=== PATIENT | female | born 1940 | race African-American/Black ===

== ENCOUNTER 2017-03-12 18:09 | Emergency (ER) | payer MEDICARE ==
[2017-03-12] MEDS ORDERED: HYDROcodone/Acetaminophen 10/325 mg Tablet ONE (19:31)
[2017-03-12] MEDS ORDERED: Lidocaine 1% (PF) 30 ML VIAL ONE (19:31)
[2017-03-12 20:05] LABS: #Basophils 0.1 thou/uL (0.0-0.2); #Eosinphils 0.2 thou/uL (0.0-0.7); #Monocytes 0.4 thou/uL (0.11-0.59); #Neutrophils 2.9 thou/uL (1.40-6.50); %Basophils 0.9 % (0.0-1.0); %Lymphocytes 45.7 % (21.0-51.0); %Monocytes 5.9 % (0.0-10.0); Hematocrit 39.9 % (36.0-47.0); Mean Platelet Volume 8.1 fL (7.4-10.4); Red Blood Cell (RBC) Count 3.97 mill/uL (4.20-5.40); White Blood Cell (WBC) Count 6.6 thou/uL (4.8-10.8)
[2017-03-12 20:12] LABS: Prothrombin Time 20.4 SEC (12.0-14.7)
[2017-03-12] MEDS ORDERED: Clindamycin/D5W 600 mg/50 ml Premix Bag ONE (20:12)
[2017-03-12] MEDS ORDERED: Adacel (T-DAP) 0.5 ML VIAL ONE (20:12)
[2017-03-12 20:24] LABS: Anion Gap 10 mmol/L (10-20); BUN (Urea Nitrogen) 19 mg/dL (9.8-20.1); Calc. Creatinine Clearance 0 mL/min (70-130); Calcium 9.7 mg/dL (7.8-10.44); Carbon Dioxide 27 mmol/L (23-31); Chloride 109 mmol/L (98-107); Estimated GFR-MDRD 49
[2017-03-12] MEDS ORDERED: Piperacillin/Tazobactam 3.375 GM in Sodium Chloride 0.9% 100 ML IVPB SCH (20:45)
--- NOTE | 2017-03-12 21:11 | RAD ---
LEFT HAND THREE VIEWS 03/12/17 HISTORY: [place] injury. FINDINGS: Metallic fishhook is embedded at the lateral aspect of the thumb at the level of the mid shaft proxim al phalanx. 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 IMPRESSION: Embedded metallic fishhook left thumb. POS: [facility]
== END 2017-03-12 22:21 | disposition home or self-care (01) ==
LOC: ERS 18:09
DX: S61.022A Laceration with foreign body of left thumb without damage to nail, initial encounter (principal); I48.91 Unspecified atrial fibrillation; E03.9 Hypothyroidism, unspecified; I10 Essential (primary) hypertension; W45.8XXA Other foreign body or object entering through skin, initial encounter
CPT/HCPCS: 10120; 36415; 80048; 85025; 85610; 90471; 90715; 96365; 96367; J2001; J2543; J3490; J7050

== ENCOUNTER 2017-03-25 08:42 | Outpatient (CLI) | payer MEDICARE | END 2017-03-25 08:43 | disposition home or self-care (01) | LOC: BICULT 08:42 | PROVIDERS: ATTEND Internal Medicine Nephrology | DX: I12.9 Hypertensive chronic kidney disease with stage 1 through stage 4 chronic kidney disease, or unspecified chronic kidney disease (principal); N18.3 Chronic kidney disease, stage 3 (moderate) | CPT/HCPCS: 76770 ==

== ENCOUNTER 2017-10-27 14:11 | Outpatient (CLI) | payer MEDICARE ==
--- NOTE | 2017-10-27 15:54 | ULT ---
VENOUS DOPPLER ULTRASOUND OF THE LEFT LOWER EXTREMITY: History Left lower extremity edema. TECHNIQUE: Robertson scale ultrasound with color flow and spectral Doppler imaging of the deep venous system of the l eft lower extremity is performed. FINDINGS: There is slightly sluggish flow with normal compression and augmentation noted in the right common fe moral, femoral, deep femoral, popliteal, posterior tibial, and greater saphenous veins in the left lo wer extremity. IMPRESSION: No evidence of deep vein thrombosis in the left lower extremity. POS: [facility]
== END 2017-10-27 14:12 | disposition home or self-care (01) ==
LOC: ULT 14:11
PROVIDERS: ATTEND Student in an Organized Health Care Education/Training Program
DX: R60.0 Localized edema (principal)

== ENCOUNTER 2018-03-07 16:35 | Emergency (ER) | payer MEDICARE ==
[2018-03-07 17:13] LABS: #Eosinphils 0.1 thou/uL (0.0-0.7); #Lymphocytes 2.7 thou/uL (1.20-3.40); #Monocytes 0.5 thou/uL (0.11-0.59); #Neutrophils 3.1 thou/uL (1.40-6.50); %Basophils 0.7 % (0.0-1.0); %Eosinophils 2.1 % (0.0-10.0); %Monocytes 8.1 % (0.0-10.0); %Neutrophils 48.1 % (42.0-75.0); Hemoglobin 12.1 g/dL (12.0-16.0); Mean Corpuscular HGB CONC 31.5 g/dL (32.0-36.0); Mean Corpuscular Hemoglobin 31.5 pg (27.0-31.0); Mean Platelet Volume 8.6 fL (7.4-10.4); Platelet Count 144 thou/uL (130-400); RBC Distribution Width 13.4 % (11.5-14.5); Red Blood Cell (RBC) Count 3.84 mill/uL (4.20-5.40); White Blood Cell (WBC) Count 6.5 thou/uL (4.8-10.8)
[2018-03-07 17:34] LABS: ALT (SGPT) 11 U/L (8-55); AST (SGOT) 14 U/L (5-34); Albumin 4.1 g/dL (3.4-4.8); Alkaline Phosphatase 53 U/L (40-150); Anion Gap 13 mmol/L (10-20); BUN (Urea Nitrogen) 17 mg/dL (9.8-20.1); Bilirubin, Total 0.4 mg/dL (0.2-1.2); Calc. Creatinine Clearance 0 mL/min (70-130); Calcium 9.6 mg/dL (7.8-10.44); Carbon Dioxide 23 mmol/L (23-31); Chloride 105 mmol/L (98-107); Estimated GFR-MDRD 51; Globulin 3.2 g/dL (2.4-3.5); Glucose 90 mg/dL (83-110); Potassium 4.5 mmol/L (3.5-5.1); Protein, Total 7.3 g/dL (6.0-8.3); Sodium 136 mmol/L (136-145)
[2018-03-07 17:39] LABS: CKMB 0.8 ng/mL (0-6.6); Troponin I Less than 0.010 ng/mL (< 0.028)
[2018-03-07 17:52] LABS: Bilirubin Negative (Negative); Blood, Urine Negative (Negative); Clarity CLEAR (Clear); Glucose, Urine (Dipstick) Negative (Negative); Leukocyte Trace (Negative); Nitrite Negative (Negative); Protein, Urine (Dipstick) Negative (Neg-Trace); Specific Gravity, Urine 1.011 (1.002-1.036); Urobilinogen 0.2 mg/dL (0.2-1.0)
[2018-03-07 17:55] LABS: Bacteria/HPF None Seen HPF (None Seen); Hyaline Casts/LPF 0-3 HYALINE CAST LPF (0-3 Hyaline); RBC/HPF 0-3 HPF (0-3); Squamous Epithelial 0-3 HPF (0-3); WBC/HPF 0-3 HPF (0-3)
--- NOTE | 2018-03-07 18:24 | CT ---
CT HEAD WITHOUT CONTRAST: Technique: Multiple contiguous axial images were obtained through the head without IV enhancement. Indications: Dizziness. Headache. Comparison: 04-12-17 FINDINGS: Cortical volume loss again noted. Caval septum pellucidum again noted. Ventricular size is normal. No evidence of intracranial mass, hemorrhage, or acute infarct. No interval change. IMPRESSION: No acute finding. POS: [facility]
[2018-03-07] MEDS ORDERED: Meclizine HCl 25 MG TAB ONE (18:25)
== END 2018-03-07 19:00 | disposition home or self-care (01) ==
LOC: ERS 16:35
DX: R42 Dizziness and giddiness (principal); E03.9 Hypothyroidism, unspecified; I10 Essential (primary) hypertension; I48.91 Unspecified atrial fibrillation
CPT/HCPCS: 70450; 80053; 81003; 81015; 82553; 84484; 85025; 93005; 96360

== ENCOUNTER 2018-06-06 10:01 | Outpatient (CLI) | payer MEDICARE ==
--- NOTE | 2018-06-06 12:05 | ULT ---
RIGHT LEG SOFT TISSUE ULTRASOUND: HISTORY: Palpable mass at the anterior aspect of the mid right tibia/fibula. TECHNIQUE: Multiplanar casas-scale and color Doppler images were obtained in a targeted ultrasound at the area of palpable abnormality. FINDINGS: No fluid collection or mass is seen at the area of palpable abnormality. Normal underlying subcutane ous fat and muscle are seen. IMPRESSION: No significant abnormality at the area of palpable concern. POS: [facility]
== END 2018-06-06 10:02 | disposition home or self-care (01) ==
LOC: BICULT 10:01
PROVIDERS: ATTEND Internal Medicine
DX: L98.9 Disorder of the skin and subcutaneous tissue, unspecified (principal)
CPT/HCPCS: 76999

== ENCOUNTER 2018-06-16 14:10 | Emergency (ER) | payer MEDICARE ==
[2018-06-16 15:34] LABS: #Basophils 0.1 thou/uL (0.0-0.2); #Eosinphils 0.2 thou/uL (0.0-0.7); #Lymphocytes 3.3 thou/uL (1.20-3.40); #Monocytes 0.5 thou/uL (0.11-0.59); #Neutrophils 2.7 thou/uL (1.40-6.50); %Basophils 1.6 % (0.0-1.0); %Eosinophils 3.5 % (0.0-10.0); %Lymphocytes 48.9 % (21.0-51.0); %Monocytes 6.7 % (0.0-10.0); %Neutrophils 39.2 % (42.0-75.0); Hemoglobin 13.3 g/dL (12.0-16.0); Mean Corpuscular HGB CONC 31.9 g/dL (32.0-36.0); Mean Corpuscular Hemoglobin 32.4 pg (27.0-31.0); Mean Platelet Volume 8.2 fL (7.4-10.4); Platelet Count 192 thou/uL (130-400); White Blood Cell (WBC) Count 6.8 thou/uL (4.8-10.8)
[2018-06-16 15:56] LABS: ALT (SGPT) 7 U/L (8-55); AST (SGOT) 16 U/L (5-34); Albumin 4.3 g/dL (3.4-4.8); Alkaline Phosphatase 61 U/L (40-150); Anion Gap 13 mmol/L (10-20); BUN (Urea Nitrogen) 16 mg/dL (9.8-20.1); Bilirubin, Total 0.3 mg/dL (0.2-1.2); Calc. Creatinine Clearance 0 mL/min (70-130); Calcium 10.3 mg/dL (7.8-10.44); Carbon Dioxide 27 mmol/L (23-31); Chloride 108 mmol/L (98-107); Estimated GFR-MDRD 34; Globulin 3.6 g/dL (2.4-3.5); Glucose 92 mg/dL (83-110); Potassium 3.9 mmol/L (3.5-5.1); Protein, Total 7.9 g/dL (6.0-8.3); Sodium 144 mmol/L (136-145)
--- NOTE | 2018-06-16 16:53 | CT ---
CT HEAD NONCONTRAST DATE: 06/16/18 HISTORY: Altered mental status. COMPARISON: 03/07/18. FINDINGS: There is no evidence of acute intracranial hemorrhage or infarct. Mild diffuse cortical atrophy. No m ass effect or shift of midline structures. Enlargement of the supraclinoid portion of the left merchandising intern al carotid artery is apparent. Postoperative changes of each side of the calvarium are apparent. Larg e cavum septum pellucidum and cavum vergae. There is calcification along the anterior falx. IMPRESSION: Chronic-type findings are stable. No acute intracranial abnormalities are demonstrated. POS: [facility]
[2018-06-16 19:53] LABS: Bilirubin Moderate (Negative); Blood, Urine Negative (Negative); Clarity CLEAR (Clear); Glucose, Urine (Dipstick) Negative (Negative); Leukocyte Small (Negative); Nitrite Negative (Negative); Protein, Urine (Dipstick) Trace mg/dL (Neg-Trace); Specific Gravity, Urine 1.024 (1.002-1.036); Urobilinogen 0.2 mg/dL (0.2-1.0)
[2018-06-16 19:55] LABS: Bacteria/HPF None Seen HPF (None Seen); RBC/HPF 0-3 HPF (0-3); Squamous Epithelial 0-3 HPF (0-3)
[2018-06-16 19:57] LABS: Pathc Cast-AUWi Flag 5.96 (0-2.49)
[2018-06-16 19:58] LABS: Hyaline Casts/LPF 0-3 HYALINE CAST LPF (0-3 Hyaline); Manual Microscopic Reviewed? No Path Casts Seen
== END 2018-06-16 20:14 | disposition home or self-care (01) ==
LOC: ERS 14:10
DX: R55 Syncope and collapse (principal); I48.91 Unspecified atrial fibrillation; E03.9 Hypothyroidism, unspecified; I10 Essential (primary) hypertension; Z79.899 Other long term (current) drug therapy
CPT/HCPCS: 36415; 70450; 80053; 81003; 81015; 85025; 85652; 86140; 93005

== ENCOUNTER 2018-07-20 14:33 | Outpatient (CLI) | payer MEDICARE ==
--- NOTE | 2018-07-21 14:34 | MRI ---
MRI RIGHT FORELEG WITH AND WITHOUT IV CONTRAST: Date: 07/20/18 PROVIDED CLINICAL HISTORY: Right anterior foreleg palpable abnormality, painful. FINDINGS: In the region of palpable concern at the anterior-lateral aspect of the mid foreleg, as marked on the skin surface with a vitamin E capsule, there is a focal area of discontinuity of the muscular fascia without apparent current protrusion of anterior compartment foreleg musculature. There is no evidenc e for mass or abnormal contrast enhancement. Scattered patchy nonspecific areas of signal alteration are seen within the posterior and anterior foreleg musculature, somewhat more conspicuously involving the extensor digitorum longus muscle adjacent to the defect. No abnormal contrast enhancement is identified. The courses of the regional major neurovascular struc tures are unremarkable. Partially visualized Scott's cyst is seen. IMPRESSION: 6.0 mm muscular fascial defect in the region of palpable concern. This could be a site of possible mu scular herniation which could produce a painful, palpable mass. No current muscular herniation is jules dent. POS: [facility]
== END 2018-07-20 14:34 | disposition home or self-care (01) ==
LOC: MRI 14:33
PROVIDERS: ATTEND Internal Medicine
DX: R22.41 Localized swelling, mass and lump, right lower limb (principal)
CPT/HCPCS: 82565

== ENCOUNTER 2022-03-20 10:53 | Emergency (ER) | payer MEDICARE ==
[2022-03-20 11:59] LABS: Mean Corpuscular HGB CONC 32.6 g/dL (32.0-36.0); Mean Corpuscular Hemoglobin 33.4 pg (27.0-31.0); Mean Platelet Volume 8.9 fL (7.4-10.4); Platelet Count 128 10x3/uL (130-400); RBC Distribution Width 12.8 % (11.5-14.5); Red Blood Cell (RBC) Count 3.58 mill/uL (4.20-5.40); White Blood Cell (WBC) Count 7.9 10x3/uL (4.8-10.8)
[2022-03-20 12:20] LABS: Burr Cells SLIGHT = 2-5 cells (100X) (0-1/hpf); Eosinophils 3 % (0-10); Lymphocytes 61 % (21-51); MDiff Complete? YES; Macrocytosis SLIGHT = 6-15 cells (100X) (0-5/hpf); Monocytes 6 % (0-10); Neutrophil 30 % (42-75); Ovalocytes SLIGHT = 2-5 cells (100X) (0-1/hpf); Platelet Morphology Comment Appears Decreased; Polychromasia SLIGHT = 2-3 cells (100X) (0-2/hpf)
[2022-03-20 12:46] LABS: ALT (SGPT) 8 U/L (8-55); AST (SGOT) 18 U/L (5-34); Albumin 3.6 g/dL (3.4-4.8); Alkaline Phosphatase 36 U/L (40-110); Anion Gap 17 mmol/L (10-20); BUN (Urea Nitrogen) 19 mg/dL (9.8-20.1); Bilirubin, Total 0.4 mg/dL (0.2-1.2); Calc. Creatinine Clearance 0 mL/min (70-130); Calcium 8.2 mg/dL (7.8-10.44); Carbon Dioxide 18 mmol/L (23-31); Chloride 105 mmol/L (98-107); Estimated GFR 46; Globulin 2.9 g/dL (2.4-3.5); Glucose 73 mg/dL (83-110); Potassium 3.5 mmol/L (3.5-5.1); Protein, Total 6.5 g/dL (5.8-8.1); Sodium 136 mmol/L (136-145)
[2022-03-20 12:48] LABS: Bacteria/HPF None Seen HPF (None Seen); Bilirubin Negative (Negative); Blood, Urine Negative (Negative); Clarity Clear (Clear); Glucose, Urine (Dipstick) Normal (Negative); Ketone, Urine Negative (Negative); Leukocyte 500 Leu/uL (Negative); Nitrite Negative (Negative); Protein, Urine (Dipstick) Negative (Neg-Trace); RBC/HPF 0-3 HPF (0-3); Specific Gravity, Urine 1.018 (1.002-1.036); Squamous Epithelial 0-3 HPF (0-3); Urobilinogen Normal mg/dL (Less than 2); WBC/HPF 0-3 HPF (0-3)
== END 2022-03-20 13:19 | disposition home or self-care (01) ==
LOC: ERS 10:53
DX: R41.0 Disorientation, unspecified (principal); I10 Essential (primary) hypertension; E03.9 Hypothyroidism, unspecified
CPT/HCPCS: 36415; 70450; 71045; 80053; 81003; 81015; 84484; 85025; 93005

== ENCOUNTER 2022-06-20 16:07 | Emergency (ER) | payer MEDICARE ==
[2022-06-20 17:05] LABS: #Basophils 0.1 thou/uL (0.0-0.2); #Eosinphils 0.1 thou/uL (0.0-0.7); #Lymphocytes 1.5 thou/uL (1.20-3.40); #Monocytes 0.3 thou/uL (0.11-0.59); %Basophils 1.2 % (0.0-1.0); %Eosinophils 2.7 % (0.0-10.0); %Lymphocytes 30.5 % (21.0-51.0); %Monocytes 5.6 % (0.0-10.0); Hemoglobin 11.9 g/dL (12.0-16.0); Mean Corpuscular Hemoglobin 34.4 pg (27.0-31.0); Mean Platelet Volume 8.4 fL (7.4-10.4); Platelet Count 124 10x3/uL (130-400); RBC Distribution Width 12.7 % (11.5-14.5); Red Blood Cell (RBC) Count 3.45 mill/uL (4.20-5.40)
[2022-06-20 17:25] LABS: ALT (SGPT) 21 U/L (8-55); AST (SGOT) 24 U/L (5-34); Albumin 4.2 g/dL (3.4-4.8); Alkaline Phosphatase 52 U/L (40-110); Anion Gap 10 mmol/L (10-20); BUN (Urea Nitrogen) 19 mg/dL (9.8-20.1); Bilirubin, Total 0.4 mg/dL (0.2-1.2); Calc. Creatinine Clearance 0 mL/min (70-130); Calcium 9.2 mg/dL (7.8-10.44); Carbon Dioxide 26 mmol/L (23-31); Chloride 106 mmol/L (98-107); Estimated GFR 45; Globulin 2.9 g/dL (2.4-3.5); Glucose 94 mg/dL (83-110); Potassium 4.7 mmol/L (3.5-5.1); Protein, Total 7.1 g/dL (5.8-8.1); Sodium 137 mmol/L (136-145)
== END 2022-06-20 18:41 | disposition home or self-care (01) ==
LOC: ERS 16:07
DX: I10 Essential (primary) hypertension (principal); E03.9 Hypothyroidism, unspecified; Z79.899 Other long term (current) drug therapy
CPT/HCPCS: 36415; 70450; 80053; 85025

== ENCOUNTER 2022-08-28 01:10 | Emergency (ER) | payer MEDICARE ==
[2022-08-28] MEDS ORDERED: hydrALAZINE 20 MG/ML VIAL ONE (01:43)
[2022-08-28 02:01] LABS: #Eosinphils 0.3 thou/uL (0.0-0.7); #Monocytes 0.4 thou/uL (0.11-0.59); #Neutrophils 1.8 thou/uL (1.40-6.50); %Basophils 0.8 % (0.0-1.0); %Lymphocytes 47.1 % (21.0-51.0); %Monocytes 7.9 % (0.0-10.0); Hemoglobin 11.2 g/dL (12.0-16.0); Mean Corpuscular HGB CONC 31.4 g/dL (32.0-36.0); Mean Corpuscular Hemoglobin 31.5 pg (27.0-31.0); Mean Corpuscular Volume 100.6 fl (78.0-98.0); Mean Platelet Volume 10.5 fL (7.4-10.4); Platelet Count 144 10x3/uL (130-400); RBC Distribution Width 13.8 % (11.5-14.5); Red Blood Cell (RBC) Count 3.55 mill/uL (4.20-5.40); White Blood Cell (WBC) Count 4.8 10x3/uL (4.8-10.8)
[2022-08-28 02:30] LABS: Bilirubin Negative (Negative); Blood, Urine Negative (Negative); Clarity Clear (Clear); Glucose, Urine (Dipstick) Normal (Negative); Ketone, Urine Negative (Negative); Leukocyte Negative Leu/uL (Negative); Nitrite Negative (Negative); Protein, Urine (Dipstick) Negative (Neg-Trace); Specific Gravity, Urine 1.006 (1.002-1.036); Urobilinogen Normal mg/dL (Less than 2); pH, Urine 7.5 (5.0-9.0)
[2022-08-28 03:17] LABS: ALT (SGPT) 53 U/L (8-55); AST (SGOT) 70 U/L (5-34); Albumin 4.2 g/dL (3.4-4.8); Alkaline Phosphatase 77 U/L (40-110); Anion Gap 11 mmol/L (10-20); BUN (Urea Nitrogen) 20 mg/dL (9.8-20.1); Bilirubin, Total 0.4 mg/dL (0.2-1.2); Calc. Creatinine Clearance 0 mL/min (70-130); Calcium 9.6 mg/dL (7.8-10.44); Carbon Dioxide 25 mmol/L (23-31); Chloride 109 mmol/L (98-107); Estimated GFR 38; Globulin 2.9 g/dL (2.4-3.5); Glucose 72 mg/dL (83-110); Potassium 4.4 mmol/L (3.5-5.1); Protein, Total 7.1 g/dL (5.8-8.1); Sodium 141 mmol/L (136-145)
== END 2022-08-28 07:07 | disposition home or self-care (01) ==
LOC: ERS 01:10
DX: I10 Essential (primary) hypertension (principal); E03.9 Hypothyroidism, unspecified; Z79.01 Long term (current) use of anticoagulants; Z79.899 Other long term (current) drug therapy
CPT/HCPCS: 71045; 80053; 81003; 83880; 84484; 85025; 93005; J0360; 96374

== ENCOUNTER 2022-11-16 10:54 | Outpatient (CLI) | payer MEDICARE | END 2022-11-16 10:55 | disposition home or self-care (01) | LOC: RAD-FRANK 10:54 | PROVIDERS: ATTEND Nurse Practitioner Family | DX: M25.551 Pain in right hip (principal) ==

== ENCOUNTER 2023-01-05 15:59 | Emergency (ER) | payer MEDICARE ==
[~2023-01-05 15:59] MED LIST: Iopamidol-370 76% 500 ML MDV (1 ML CHARGE) ONE
[2023-01-05 17:24] LABS: #Eosinphils 0.3 thou/uL (0.0-0.7); #Monocytes 0.6 thou/uL (0.11-0.59); #Neutrophils 1.3 thou/uL (1.40-6.50); %Basophils 0.4 % (0.0-1.0); %Eosinophils 7.1 % (0.0-10.0); %Lymphocytes 50.6 % (21.0-51.0); %Monocytes 13.5 % (0.0-10.0); Hematocrit 34.8 % (36.0-47.0); Hemoglobin 11.2 g/dL (12.0-16.0); Mean Corpuscular HGB CONC 32.2 g/dL (32.0-36.0); Mean Corpuscular Volume 99.4 fl (78.0-98.0); Mean Platelet Volume 10.5 fL (7.4-10.4); RBC Distribution Width 14.4 % (11.5-14.5); White Blood Cell (WBC) Count 4.5 10x3/uL (4.8-10.8)
[2023-01-05 17:26] LABS: Platelet Count 105 10x3/uL (130-400)
[2023-01-05] MEDS ORDERED: Morphine 4 MG/ML VIAL ONE (17:37)
[2023-01-05 17:52] LABS: ALT (SGPT) 12 U/L (8-55); AST (SGOT) 21 U/L (5-34); Albumin 3.3 g/dL (3.4-4.8); Alkaline Phosphatase 44 U/L (40-110); Anion Gap 9 mmol/L (10-20); BUN (Urea Nitrogen) 23 mg/dL (9.8-20.1); Bilirubin, Total 0.3 mg/dL (0.2-1.2); Calc. Creatinine Clearance 0 mL/min (70-130); Calcium 8.5 mg/dL (7.8-10.44); Carbon Dioxide 21 mmol/L (23-31); Chloride 107 mmol/L (98-107); Estimated GFR 40; Globulin 2.5 g/dL (2.4-3.5); Glucose 65 mg/dL (83-110); Potassium 4.1 mmol/L (3.5-5.1); Protein, Total 5.8 g/dL (5.8-8.1); Sodium 133 mmol/L (136-145)
== END 2023-01-05 23:36 | disposition home or self-care (01) ==
LOC: ERS 15:59
DX: K56.41 Fecal impaction (principal); I48.91 Unspecified atrial fibrillation; I10 Essential (primary) hypertension; E03.9 Hypothyroidism, unspecified; Z87.891 Personal history of nicotine dependence; Z95.810 Presence of automatic (implantable) cardiac defibrillator; Z79.01 Long term (current) use of anticoagulants; Z79.899 Other long term (current) drug therapy
CPT/HCPCS: 36415; 71045; 74177; 80053; 83605; 85025; 96374; J2270; Q9967

== ENCOUNTER 2023-10-10 19:14 | Emergency (ER) | payer MEDICARE ==
[2023-10-10] MEDS ORDERED: Acetaminophen 500 MG TAB ONE (20:40)
== END 2023-10-10 20:00 | disposition home or self-care (01) ==
LOC: ERS 19:14
DX: M19.042 Primary osteoarthritis, left hand (principal); I48.91 Unspecified atrial fibrillation; I10 Essential (primary) hypertension; E03.9 Hypothyroidism, unspecified; Z87.891 Personal history of nicotine dependence; Z79.899 Other long term (current) drug therapy; Z95.810 Presence of automatic (implantable) cardiac defibrillator

== ENCOUNTER 2023-10-27 22:09 | Emergency (ER) | payer MEDICARE ==
[2023-10-27 23:16] LABS: #Basophils Less than 0.03 10x3/uL (0.0-0.2); %Basophils 0.3 % (0.0-1.0); %Lymphocytes 29.6 % (21.0-51.0); %Monocytes 8.3 % (0.0-10.0); %Neutrophils 57.8 % (42.0-75.0); Hematocrit 33.8 % (36.0-47.0); Hemoglobin 10.5 g/dL (12.0-16.0); Mean Corpuscular HGB CONC 31.1 g/dL (32.0-36.0); Mean Corpuscular Hemoglobin 31.1 pg (27.0-31.0); Mean Platelet Volume 10.4 fL (7.4-10.4); Platelet Count 146 10x3/uL (130-400); RBC Distribution Width 14.9 % (11.5-14.5); Red Blood Cell (RBC) Count 3.38 mill/uL (4.20-5.40)
[2023-10-27 23:30] LABS: ALT (SGPT) 21 U/L (8-55); AST (SGOT) 29 U/L (5-34); Albumin 3.5 g/dL (3.4-4.8); Alkaline Phosphatase 51 U/L (40-110); Anion Gap 8 mmol/L (10-20); BUN (Urea Nitrogen) 21 mg/dL (9.8-20.1); Bilirubin, Total 0.3 mg/dL (0.2-1.2); Calc. Creatinine Clearance 0 mL/min (70-130); Calcium 9.3 mg/dL (7.8-10.44); Carbon Dioxide 29 mmol/L (23-31); Chloride 102 mmol/L (98-107); Estimated GFR 45; Globulin 2.9 g/dL (2.4-3.5); Glucose 93 mg/dL (83-110); Potassium 4.4 mmol/L (3.5-5.1); Protein, Total 6.4 g/dL (5.8-8.1); Sodium 135 mmol/L (136-145)
[2023-10-27 23:31] LABS: Troponin I Less than 0.010 ng/mL (< 0.028)
== END 2023-10-28 00:45 | disposition home or self-care (01) ==
LOC: ERS 22:09
DX: M79.604 Pain in right leg (principal); M79.605 Pain in left leg; Z87.891 Personal history of nicotine dependence
CPT/HCPCS: 36415; 71045; 80053; 83880; 84484; 85025; 93005

== ENCOUNTER 2023-11-01 15:44 | Outpatient (CLI) | payer MEDICARE | END 2023-11-01 15:45 | disposition home or self-care (01) | LOC: RAD 15:44 | PROVIDERS: ATTEND Internal Medicine Cardiovascular Disease | DX: I71.9 Aortic aneurysm of unspecified site, without rupture (principal); J98.4 Other disorders of lung; Z98.890 Other specified postprocedural states | CPT/HCPCS: 71046 ==

== ENCOUNTER 2024-01-11 06:50 | Emergency (ER) | payer MEDICARE ==
[2024-01-11] MEDS ORDERED: Ketorolac Tromethamine 30 MG (1 mL) VIAL ONE (07:31)
[2024-01-11 07:41] LABS: Bacteria/HPF None Seen HPF (None Seen); Bilirubin Negative (Negative); Blood, Urine Negative (Negative); CAUTI Indications for Culture Pelvic or flank pain; Clarity Clear (Clear); Glucose, Urine (Dipstick) Normal (Negative); Ketone, Urine Negative (Negative); Leukocyte 75 Leu/uL (Negative); Nitrite Negative (Negative); Protein, Urine (Dipstick) 10 mg/dL (Neg-Trace); RBC/HPF None Seen HPF (0-3); Specific Gravity, Urine 1.011 (1.002-1.036); Squamous Epithelial 0-3 HPF (0-3); Urobilinogen Normal mg/dL (Less than 2); WBC/HPF 0-3 HPF (0-3)
[2024-01-11 07:44] LABS: Urine Culture Reflex No No
== END 2024-01-11 09:53 | disposition home or self-care (01) ==
LOC: ERS 06:50
DX: M25.552 Pain in left hip (principal); I10 Essential (primary) hypertension; Z87.891 Personal history of nicotine dependence
CPT/HCPCS: 72170; 81001; J1885; 96372; 99283

== ENCOUNTER 2024-01-21 18:05 | Emergency (ER) | payer MEDICARE ==
[2024-01-21 19:34] LABS: #Basophils 0.03 10x3/uL (0.0-0.2); %Basophils 0.5 % (0.0-1.0); %Eosinophils 3.9 % (0.0-10.0); %Lymphocytes 34.5 % (21.0-51.0); %Monocytes 7.7 % (0.0-10.0); %Neutrophils 52.9 % (42.0-75.0); Hematocrit 39.3 % (36.0-47.0); Hemoglobin 12.2 g/dL (12.0-16.0); Mean Corpuscular Hemoglobin 31.9 pg (27.0-31.0); Mean Corpuscular Volume 102.9 fL (78.0-98.0); Mean Platelet Volume 10.8 fL (7.4-10.4); Platelet Count 110 10x3/uL (130-400); RBC Distribution Width 15.7 % (11.5-14.5); Red Blood Cell (RBC) Count 3.82 mill/uL (4.20-5.40)
[2024-01-21 19:38] LABS: ALT (SGPT) 22 U/L (8-55); AST (SGOT) 27 U/L (5-34); Albumin 3.7 g/dL (3.4-4.8); Alkaline Phosphatase 72 U/L (40-110); Anion Gap 13 mmol/L (10-20); BUN (Urea Nitrogen) 39 mg/dL (9.8-20.1); Bilirubin, Total 0.5 mg/dL (0.2-1.2); Calc. Creatinine Clearance 0 mL/min (70-130); Calcium 9.3 mg/dL (7.8-10.44); Carbon Dioxide 25 mmol/L (23-31); Chloride 106 mmol/L (98-107); Estimated GFR 26; Glucose 85 mg/dL (83-110); Lipase 28 U/L (8-78); Potassium 4.5 mmol/L (3.5-5.1); Protein, Total 6.7 g/dL (5.8-8.1); Sodium 139 mmol/L (136-145)
[2024-01-21] MEDS ORDERED: Morphine 4 MG/ML VIAL ONE (20:19)
[2024-01-21] MEDS ORDERED: diphenhydrAMINE 50 MG/ML VIAL ONE (20:58)
== END 2024-01-21 22:52 | disposition home or self-care (01) ==
LOC: ERS 18:05
DX: M25.552 Pain in left hip (principal); J98.11 Atelectasis; R79.89 Other specified abnormal findings of blood chemistry; K80.20 Calculus of gallbladder without cholecystitis without obstruction; K76.0 Fatty (change of) liver, not elsewhere classified; I10 Essential (primary) hypertension; Z87.891 Personal history of nicotine dependence
CPT/HCPCS: 73502; 73700; 74177; 80053; 83605; 83690; 85025; J1200; J2272; 36415; 96374; 96375; Q9967

== ENCOUNTER 2024-01-27 10:38 | Emergency (ER) | payer MEDICARE ==
[2024-01-27] MEDS ORDERED: HYDROcodone/Acetaminophen 5/325 mg Tablet ONE (11:38)
[2024-01-27 12:18] LABS: #Basophils 0.04 10x3/uL (0.0-0.2); %Basophils 0.7 % (0.0-1.0); %Eosinophils 5.4 % (0.0-10.0); %Lymphocytes 41.9 % (21.0-51.0); %Monocytes 8.7 % (0.0-10.0); %Neutrophils 42.9 % (42.0-75.0); Hematocrit 40.1 % (36.0-47.0); Hemoglobin 12.3 g/dL (12.0-16.0); Mean Corpuscular HGB CONC 30.7 g/dL (32.0-36.0); Mean Corpuscular Hemoglobin 31.1 pg (27.0-31.0); Mean Corpuscular Volume 101.3 fL (78.0-98.0); Mean Platelet Volume 10.8 fL (7.4-10.4); Platelet Count 149 10x3/uL (130-400); RBC Distribution Width 15.4 % (11.5-14.5); Red Blood Cell (RBC) Count 3.96 mill/uL (4.20-5.40)
[2024-01-27 12:34] LABS: ALT (SGPT) 14 U/L (8-55); AST (SGOT) 22 U/L (5-34); Albumin 3.5 g/dL (3.4-4.8); Alkaline Phosphatase 65 U/L (40-110); Anion Gap 13 mmol/L (10-20); BUN (Urea Nitrogen) 14 mg/dL (9.8-20.1); Bilirubin, Total 0.5 mg/dL (0.2-1.2); Calc. Creatinine Clearance 0 mL/min (70-130); Calcium 9.7 mg/dL (7.8-10.44); Carbon Dioxide 25 mmol/L (23-31); Chloride 108 mmol/L (98-107); Estimated GFR 39; Globulin 2.9 g/dL (2.4-3.5); Glucose 67 mg/dL (83-110); Potassium 4.1 mmol/L (3.5-5.1); Protein, Total 6.4 g/dL (5.8-8.1); Sodium 142 mmol/L (136-145)
[2024-01-27 12:35] LABS: Bacteria/HPF None Seen HPF (None Seen); Bilirubin Negative (Negative); Blood, Urine Negative (Negative); CAUTI Indications for Culture Pelvic or flank pain; Clarity Clear (Clear); Glucose, Urine (Dipstick) Normal (Negative); Ketone, Urine Negative (Negative); Leukocyte 75 Leu/uL (Negative); Nitrite Negative (Negative); Protein, Urine (Dipstick) 20 mg/dL (Neg-Trace); RBC/HPF 0-3 HPF (0-3); Squamous Epithelial 0-3 HPF (0-3); Urobilinogen Normal mg/dL (Less than 2); WBC/HPF 0-3 HPF (0-3); pH, Urine 6.5 (5.0-9.0)
[2024-01-27 12:37] LABS: Urine Culture Reflex No No
== END 2024-01-27 13:34 | disposition home or self-care (01) ==
LOC: ERS 10:38
DX: K80.20 Calculus of gallbladder without cholecystitis without obstruction (principal); K76.89 Other specified diseases of liver; I77.89 Other specified disorders of arteries and arterioles; Z87.891 Personal history of nicotine dependence
CPT/HCPCS: 36415; 74176; 80053; 81001; 85025

== ENCOUNTER 2024-02-29 18:27 | Inpatient (IN) | payer MEDICARE ==
[2024-02-29] MEDS ORDERED: NOREPINEPHRINE 8 MG/250 ML-D5W 0 ML ONE (18:47)
[2024-02-29 19:09] LABS: #Basophils 0.05 10x3/uL (0.0-0.2); %Basophils 0.6 % (0.0-1.0); %Eosinophils 3.6 % (0.0-10.0); %Lymphocytes 44.1 % (21.0-51.0); %Monocytes 10.4 % (0.0-10.0); %Neutrophils 40.2 % (42.0-75.0); Hematocrit 42.7 % (36.0-47.0); Hemoglobin 13.4 g/dL (12.0-16.0); Mean Corpuscular HGB CONC 31.4 g/dL (32.0-36.0); Mean Corpuscular Hemoglobin 31.8 pg (27.0-31.0); Mean Corpuscular Volume 101.2 fL (78.0-98.0); Mean Platelet Volume 10.1 fL (7.4-10.4); Platelet Count 159 10x3/uL (130-400); RBC Distribution Width 15.6 % (11.5-14.5); Red Blood Cell (RBC) Count 4.22 mill/uL (4.20-5.40)
[2024-02-29] MEDS ORDERED: Sodium Chloride 0.9% 100 ML ONE (19:12)
[2024-02-29] MEDS ORDERED: cefTRIAXone (ROCEPHIN) 2 GM VIAL ONE (19:12)
[2024-02-29] MEDS ORDERED: Azithromycin 500 MG VIAL ONE (19:28)
[2024-02-29 19:29] LABS: ALT (SGPT) 16 U/L (8-55); AST (SGOT) 40 U/L (5-34); Albumin 3.5 g/dL (3.4-4.8); Alkaline Phosphatase 60 U/L (40-110); Anion Gap 20 mmol/L (10-20); BUN (Urea Nitrogen) 27 mg/dL (9.8-20.1); Bilirubin, Total 1.1 mg/dL (0.2-1.2); Calc. Creatinine Clearance 0 mL/min (70-130); Calcium 8.4 mg/dL (7.8-10.44); Carbon Dioxide 18 mmol/L (23-31); Chloride 103 mmol/L (98-107); Estimated GFR 27; Globulin 3.9 g/dL (2.4-3.5); Glucose 62 mg/dL (83-110); Potassium 5.5 mmol/L (3.5-5.1); Protein, Total 7.4 g/dL (5.8-8.1); Sodium 135 mmol/L (136-145)
[2024-02-29 19:38] LABS: Bilirubin Negative (Negative); Blood, Urine Trace (Negative); CAUTI Indications for Culture Alt mental st,lethar; Clarity Turbid (Clear); Glucose, Urine (Dipstick) Normal (Negative); Ketone, Urine Negative (Negative); Leukocyte Negative Leu/uL (Negative); Nitrite Negative (Negative); Protein, Urine (Dipstick) 30 mg/dL (Neg-Trace); RBC/HPF 0-3 HPF (0-3); Specific Gravity, Urine 1.015 (1.002-1.036); WBC/HPF 0-3 HPF (0-3)
[2024-02-29 19:56] LABS: Bacteria/HPF 1+ HPF (None Seen); Transitional Epithelial 0-3 HPF (None Seen)
[2024-02-29 19:59] LABS: Urine Culture Reflex No No
[2024-03-01] MEDS ORDERED: Hydrocortisone Sod Succ/PF 100 mg/2 ml Vial ONE (00:06)
[2024-03-01] MEDS ORDERED: Ondansetron PF 4 MG/2 ML Vial IVP PRN (00:15)
[2024-03-01] MEDS ORDERED: Ondansetron ODT 4 MG TAB PO PRN (00:15)
[2024-03-01] MEDS ORDERED: Acetaminophen 650 MG Suppository PR PRN (00:15)
[2024-03-01] MEDS: Lactated Ringer's 500 ML IV SCH (00:45)
[2024-03-01] MEDS: Acetaminophen 325 MG TAB PO SCH (00:49)
[2024-03-01 01:23] VITALS: BMI 31.0
[2024-03-01 01:24] LABS: Troponin I 0.076 ng/mL (< 0.028)
[2024-03-01 03:19] LABS: #Basophils Less than 0.03 10x3/uL (0.0-0.2); %Basophils 0.3 % (0.0-1.0); %Eosinophils 3.1 % (0.0-10.0); %Lymphocytes 25.2 % (21.0-51.0); %Monocytes 5.1 % (0.0-10.0); %Neutrophils 65.3 % (42.0-75.0); Hematocrit 35.8 % (36.0-47.0); Hemoglobin 11.1 g/dL (12.0-16.0); Mean Corpuscular Hemoglobin 31.5 pg (27.0-31.0); Mean Corpuscular Volume 101.7 fL (78.0-98.0); Platelet Count 148 10x3/uL (130-400); RBC Distribution Width 15.4 % (11.5-14.5); Red Blood Cell (RBC) Count 3.52 mill/uL (4.20-5.40)
[2024-03-01 03:33] LABS: INR-International Normal Ratio 1.2
[2024-03-01 04:02] LABS: ALT (SGPT) 12 U/L (8-55); AST (SGOT) 25 U/L (5-34); Albumin 2.9 g/dL (3.4-4.8); Alkaline Phosphatase 52 U/L (40-110); Anion Gap 13 mmol/L (10-20); BUN (Urea Nitrogen) 24 mg/dL (9.8-20.1); Bilirubin, Total 0.8 mg/dL (0.2-1.2); Calc. Creatinine Clearance 48 mL/min (70-130); Calcium 7.7 mg/dL (7.8-10.44); Carbon Dioxide 18 mmol/L (23-31); Chloride 108 mmol/L (98-107); Estimated GFR 40; Globulin 2.6 g/dL (2.4-3.5); Glucose 71 mg/dL (83-110); Potassium 3.6 mmol/L (3.5-5.1); Protein, Total 5.5 g/dL (5.8-8.1); Sodium 135 mmol/L (136-145)
[2024-03-01 04:08] LABS: Troponin I 0.061 ng/mL (< 0.028)
[2024-03-01] MEDS: Famotidine/PF 20 mg/2ml Vial SLOW IVP SCH (09:40)
[2024-03-01] MEDS: Famotidine 20 MG TAB PO SCH (09:40)
[2024-03-01 10:56] VITALS: BMI 31.0
[2024-03-01] MEDS: Sodium Chloride 0.9% 1,000 ML IV SCH (13:20)
[2024-03-01] MEDS: Hydrocortisone 10 mg Tablet PO SCH (20:03)
[2024-03-01] MEDS: cefTRIAXone\\ROCEPHIN 1 GM in Sodium Chloride 0.9% 100 ML IVPB SCH (20:04)
[2024-03-02 04:59] LABS: #Basophils Less than 0.03 10x3/uL (0.0-0.2); %Basophils 0.2 % (0.0-1.0); %Eosinophils 2.5 % (0.0-10.0); %Lymphocytes 33.3 % (21.0-51.0); %Monocytes 7.4 % (0.0-10.0); %Neutrophils 56.2 % (42.0-75.0); Hematocrit 33.3 % (36.0-47.0); Hemoglobin 10.4 g/dL (12.0-16.0); Mean Corpuscular HGB CONC 31.2 g/dL (32.0-36.0); Mean Corpuscular Hemoglobin 31.5 pg (27.0-31.0); Mean Corpuscular Volume 100.9 fL (78.0-98.0); Mean Platelet Volume 9.7 fL (7.4-10.4); Platelet Count 134 10x3/uL (130-400); RBC Distribution Width 15.1 % (11.5-14.5)
[2024-03-02 05:03] LABS: ALT (SGPT) 12 U/L (8-55); AST (SGOT) 22 U/L (5-34); Alkaline Phosphatase 46 U/L (40-110); Anion Gap 10 mmol/L (10-20); BUN (Urea Nitrogen) 22 mg/dL (9.8-20.1); Bilirubin, Total 0.5 mg/dL (0.2-1.2); Calc. Creatinine Clearance 54 mL/min (70-130); Carbon Dioxide 21 mmol/L (23-31); Chloride 109 mmol/L (98-107); Estimated GFR 46; Globulin 2.6 g/dL (2.4-3.5); Glucose 119 mg/dL (83-110); Potassium 3.6 mmol/L (3.5-5.1); Protein, Total 5.6 g/dL (5.8-8.1); Sodium 136 mmol/L (136-145)
[2024-03-02] MEDS: Levothyroxine Sodium 88 MCG TAB PO SCH (05:24)
[2024-03-02] MEDS: Aspirin Chewable 81 MG TAB PO SCH (09:14)
[2024-03-02] MEDS: Senokot S 8.6-50 MG TAB PO SCH (11:10)
[2024-03-03] MEDS: Lorazepam 0.5 MG TAB PO SCH (08:41)
[2024-03-03] MEDS: cefTRIAXone\\ROCEPHIN 1 GM in Sodium Chloride 0.9% 100 ML IVPB SCH (10:00)
[2024-03-03 10:10] LABS: Anion Gap 15 mmol/L (10-20); BUN (Urea Nitrogen) 15 mg/dL (9.8-20.1); Calc. Creatinine Clearance 56 mL/min (70-130); Calcium 9.1 mg/dL (7.8-10.44); Carbon Dioxide 20 mmol/L (23-31); Chloride 110 mmol/L (98-107); Estimated GFR 49; Glucose 91 mg/dL (83-110); Potassium 3.7 mmol/L (3.5-5.1); Sodium 141 mmol/L (136-145)
[2024-03-03] MEDS: Lorazepam 2 MG/ML VIAL IM SCH (15:38)
[2024-03-03] MEDS: Lorazepam 2 MG/ML VIAL SLOW IVP SCH (17:44)
[2024-03-03] MEDS: Ipratropium/Albuterol 3 ML NEB NEB PRN (20:00)
[2024-03-03] MEDS: Amlodipine 5 MG TAB PO SCH (20:19)
[2024-03-04] MEDS: Lorazepam 0.5 MG TAB PO PRN (03:02)
[2024-03-04] MEDS: Furosemide 20 MG TAB PO SCH (09:20)
[2024-03-04] MEDS: Atorvastatin Calcium 20 MG TAB PO SCH (20:39)
[2024-03-05] MEDS: Haloperidol Lactate 5 MG/ML VIAL IM SCH (22:15)
[2024-03-07 09:00] VITALS: TEMP 97.3
[2024-03-07 12:09] VITALS: BP 105/76
== END 2024-03-07 11:34 | disposition home health service (06) | DRG 640 ==
LOC: ERS 18:27 → 2NO 23:28 → MSONC 03-02 18:44
PROVIDERS: ADMIT Student in an Organized Health Care Education/Training Program; ATTEND Family Medicine
PROC: 3E033XZ Introduction of Vasopressor into Peripheral Vein, Percutaneous Approach (ICD-10-PCS; principal; 2024-02-29)
DX: E86.0 Dehydration (principal); G93.41 Metabolic encephalopathy; I31.39 Other pericardial effusion (noninflammatory); N17.9 Acute kidney failure, unspecified; N39.0 Urinary tract infection, site not specified; I48.20 Chronic atrial fibrillation, unspecified; I95.89 Other hypotension; S66.911A Strain of unspecified muscle, fascia and tendon at wrist and hand level, right hand, initial encounter; Z66 Do not resuscitate; I12.9 Hypertensive chronic kidney disease with stage 1 through stage 4 chronic kidney disease, or unspecified chronic kidney disease; N18.9 Chronic kidney disease, unspecified; F03.90 Unspecified dementia, unspecified severity, without behavioral disturbance, psychotic disturbance, mood disturbance, and anxiety; E87.5 Hyperkalemia; E03.8 Other specified hypothyroidism; Z95.1 Presence of aortocoronary bypass graft; Z90.710 Acquired absence of both cervix and uterus; Z95.2 Presence of prosthetic heart valve; Z87.891 Personal history of nicotine dependence; Z88.0 Allergy status to penicillin; W01.198A Fall on same level from slipping, tripping and stumbling with subsequent striking against other object, initial encounter
CPT/HCPCS: 36415; 36416; 51701; 70450; 71045; 71275; 72125; 74174; 80048; 80053; 81001; 83605; 83880; 84484; 85025; 85610; 87040; 87086; 93005; 94640; 94760; 96365; 96375; J0456; J0696; J1630; J1720; J2060; J3490; J7030; J7120; J7620; Q9967

== ENCOUNTER 2024-03-14 17:54 | Inpatient (IN) | payer MEDICARE ==
[2024-03-14] MEDS ORDERED: Cefepime 2 GM VIAL ONE (19:15)
[2024-03-14] MEDS ORDERED: NS ONE (19:15)
[2024-03-14] MEDS ORDERED: NOREPINEPHRINE ONE (19:15)
[2024-03-14] MEDS ORDERED: fentaNYL 50 mcg/mL 1 mL Vial ONE (19:15)
[2024-03-14] MEDS ORDERED: dilTIAZem 25 MG/5 ML VIAL ONE ×2 (19:15)
[2024-03-15] MEDS ORDERED: NOREPINEPHRINE 8 MG/250 ML-D5W 250 ML ONE (06:03)
[2024-03-15 16:21] VITALS: BMI 33.3
[2024-03-15] MEDS: Vancomycin (BATCH) 2 GM in Premix 1 BAG IVPB SCH (21:55)
[2024-03-15] MEDS: Hydrocortisone Sod Succ/PF 100 mg/2 ml Vial ONE (21:56)
[2024-03-15] MEDS: NOREPINEPHRINE 8 MG/250 ML-D5W 250 ML ONE (21:56)
[2024-03-15] MEDS: Sodium Chloride 0.9% 1,000 ML IV SCH (22:30)
[2024-03-15] MEDS ORDERED: Electrolyte Replacement Protocol 1 EACH FS PRN (23:53)
[2024-03-15] MEDS: Lactated Ringer's 1,000 ML IV SCH (23:54)
[2024-03-16] MEDS: NOREPINEPHRINE 8 MG/250 ML-D5W 250 ML IVPB SCH (00:05)
[2024-03-16] MEDS ORDERED: Amiodarone 150 MG, Admixture Fee 1 EACH in Dextrose 5% in Water 100 ML IVPB SCH (01:00)
[2024-03-16] MEDS: Hydrocortisone Sod Succ/PF 100 mg/2 ml Vial IVP SCH (02:57)
[2024-03-16] MEDS: Vancomycin (BATCH) 1.25 GM in Premix 1 BAG IVPB SCH (04:28)
[2024-03-16 05:15] LABS: #Basophils Less than 0.03 10x3/uL (0.0-0.2); #Eosinophils Less than 0.03 10x3/uL (0.0-0.7); %Basophils 0.1 % (0.0-1.0); %Lymphocytes 15.2 % (21.0-51.0); %Monocytes 4.5 % (0.0-10.0); %Neutrophils 79.5 % (42.0-75.0); Hematocrit 30.5 % (36.0-47.0); Hemoglobin 9.9 g/dL (12.0-16.0); Mean Corpuscular HGB CONC 32.5 g/dL (32.0-36.0); Mean Corpuscular Hemoglobin 31.2 pg (27.0-31.0); Mean Corpuscular Volume 96.2 fL (78.0-98.0); Mean Platelet Volume 13.6 fL (7.4-10.4); Platelet Count 80 10x3/uL (130-400); RBC Distribution Width 16.5 % (11.5-14.5); Red Blood Cell (RBC) Count 3.17 mill/uL (4.20-5.40)
[2024-03-16 05:36] LABS: Anion Gap 14 mmol/L (10-20); BUN (Urea Nitrogen) 35 mg/dL (9.8-20.1); CK (CPK) 1224 U/L (29-168); Calc. Creatinine Clearance 25 mL/min (70-130); Calcium 7.3 mg/dL (7.8-10.44); Carbon Dioxide 13 mmol/L (23-31); Chloride 121 mmol/L (98-107); Estimated GFR 18; Glucose 164 mg/dL (83-110); Potassium 4.7 mmol/L (3.5-5.1); Sodium 143 mmol/L (136-145)
[2024-03-16 06:02] LABS: Burr Cells MODERATE= 6-15 cells HPF (0-1); Platelet Adequacy Comment Platelets Decreased; Polychromasia SLIGHT = 2-3 cells HPF (0-2); Schistocytes SLIGHT = 2-5 cells HPF (0-1)
[2024-03-16] MEDS: Heparin 5,000 UNITS/ML VIAL SC SCH (07:58)
[2024-03-16] MEDS: Cefepime 1 GM in Sodium Chloride 0.9% 100 ML IVPB SCH (08:09)
[2024-03-16] MEDS: Pantoprazole 40 MG VIAL IVP SCH (08:09)
[2024-03-16 10:10] LABS: Base Excess (BEa) -10.1 mEq/L (-2.0 to +3.0); Calcium, Ionized (arterial) 1.06 mmol/L (1.12-1.30); Carboxyhemoglobin (COHb) 0.3 gm% (0.0-3.0); Hematocrit-ABG 32 % (36.0-47.0); Hemoglobin (Hb) 10.8 g/dL (12.0-16.0); O2 Tension (PaO2), arterial 207.9 mmHg (> 60.0); Potassium - ABG Lab 4.71 mmol/L (3.70-5.30); pH, Arterial 7.382 (7.35-7.45)
[2024-03-16 10:12] LABS: Actual Bicarbonate (HCO3a) 13.4 mEq/L (22-28)
[2024-03-16] MEDS: Sodium Chloride 0.9% 250 ML 250 ML IVPB SCH (11:03)
[2024-03-16] MEDS: Sodium Bicarbonate 150 MEQ in Dextrose 5% in Water 1,000 ML IV SCH (11:03)
[2024-03-16] MEDS ORDERED: Vancomycin Dose by Levels Sliding Scale (Wt 71-99) FS SCH (11:30)
[2024-03-16] MEDS: Amiodarone 450 MG, Admixture Fee 1 EACH in Dextrose 5% in Water 250 ML IVPB SCH (11:53)
[2024-03-16] MEDS: Dexmedetomidine In 0.9 % NaCl 100 ML IV SCH (15:33)
[2024-03-16 16:16] LABS: Vancomycin, Trough 14.7 ug/mL
[2024-03-16] MEDS: Mineral Oil ENEMA PR SCH (18:12)
[2024-03-16] MEDS: Albumin 25% 25 GM (100 mL) BOT IVPB SCH (18:28)
[2024-03-16] MEDS: Midodrine HCl 5 MG TAB PO SCH (19:39)
[2024-03-16] MEDS: Senokot S 8.6-50 MG TAB PO SCH (19:39)
[2024-03-17 05:22] LABS: ALT (SGPT) 207 U/L (8-55); AST (SGOT) 935 U/L (5-34); Alkaline Phosphatase 148 U/L (40-110); Anion Gap 21 mmol/L (10-20); BUN (Urea Nitrogen) 40 mg/dL (9.8-20.1); CK (CPK) 692 U/L (29-168); Calc. Creatinine Clearance 28 mL/min (70-130); Calcium 7.2 mg/dL (7.8-10.44); Carbon Dioxide 11 mmol/L (23-31); Chloride 115 mmol/L (98-107); Estimated GFR 20; Globulin 2.3 g/dL (2.4-3.5); Glucose 154 mg/dL (83-110); Potassium 4.4 mmol/L (3.5-5.1); Protein, Total 5.3 g/dL (5.8-8.1); Sodium 143 mmol/L (136-145)
[2024-03-17 05:34] LABS: #Basophils Less than 0.03 10x3/uL (0.0-0.2); #Eosinophils Less than 0.03 10x3/uL (0.0-0.7); %Basophils 0.1 % (0.0-1.0); %Eosinophils 0.1 % (0.0-10.0); %Lymphocytes 13.7 % (21.0-51.0); %Monocytes 6.4 % (0.0-10.0); Hematocrit 31.4 % (36.0-47.0); Hemoglobin 10.2 g/dL (12.0-16.0); Mean Corpuscular HGB CONC 32.5 g/dL (32.0-36.0); Mean Corpuscular Hemoglobin 31.8 pg (27.0-31.0); Mean Corpuscular Volume 97.8 fL (78.0-98.0); Platelet Count 65 10x3/uL (130-400); RBC Distribution Width 17.1 % (11.5-14.5); Red Blood Cell (RBC) Count 3.21 mill/uL (4.20-5.40)
[2024-03-17] MEDS: Polyethylene Glycol 3350 17 GM Packet PO SCH (09:25)
[2024-03-17 11:21] LABS: Base Excess (BEa) -10.7 mEq/L (-2.0 to +3.0); Calcium, Ionized (arterial) 0.99 mmol/L (1.12-1.30); Carboxyhemoglobin (COHb) 0.2 gm% (0.0-3.0); Hematocrit-ABG 33 % (36.0-47.0); Hemoglobin (Hb) 11.2 g/dL (12.0-16.0); O2 Tension (PaO2), arterial 128.3 mmHg (> 60.0); Potassium - ABG Lab 4.49 mmol/L (3.70-5.30); pH, Arterial 7.391 (7.35-7.45)
[2024-03-17 11:24] LABS: Actual Bicarbonate (HCO3a) 12.3 mEq/L (22-28); CO2 Tension 20.7 mmHg (35.0-45.0); Puncture Site Arterial Line
[2024-03-17] MEDS: Furosemide 40 MG (4 mL) VIAL SLOW IVP SCH (12:39)
[2024-03-17 12:53] LABS: Lactic Acid 11.59 mmol/L (0.5-2.2)
[2024-03-17] MEDS: Haloperidol Lactate 5 MG/ML VIAL IM SCH (23:18)
[2024-03-17] MEDS: Sodium Bicarb 50 MEQ/50 ML Abboject 8.4% SYRINGE IVP SCH (23:18)
[2024-03-17 23:52] LABS: ALT (SGPT) 699 U/L (8-55); AST (SGOT) 3730 U/L (5-34); Albumin 2.8 g/dL (3.4-4.8); Alkaline Phosphatase 164 U/L (40-110); Anion Gap 27 mmol/L (10-20); BUN (Urea Nitrogen) 43 mg/dL (9.8-20.1); Bilirubin, Total 4.4 mg/dL (0.2-1.2); Calc. Creatinine Clearance 26 mL/min (70-130); Calcium 7.1 mg/dL (7.8-10.44); Carbon Dioxide 11 mmol/L (23-31); Chloride 110 mmol/L (98-107); Estimated GFR 19; Globulin 2.3 g/dL (2.4-3.5); Glucose 124 mg/dL (83-110); Protein, Total 5.1 g/dL (5.8-8.1); Sodium 144 mmol/L (136-145)
[2024-03-18] MEDS: Sodium Bicarb 50 MEQ/50 ML Abboject 8.4% SYRINGE IVP SCH (02:06)
[2024-03-18 05:17] LABS: Hematocrit 30.6 % (36.0-47.0); Hemoglobin 9.9 g/dL (12.0-16.0); Mean Corpuscular HGB CONC 32.4 g/dL (32.0-36.0); Mean Corpuscular Hemoglobin 31.2 pg (27.0-31.0); Mean Corpuscular Volume 96.5 fL (78.0-98.0); Platelet Count 43 10x3/uL (130-400); RBC Distribution Width 18.2 % (11.5-14.5); Red Blood Cell (RBC) Count 3.17 mill/uL (4.20-5.40)
[2024-03-18 05:45] LABS: Anisocytosis SLIGHT = 6-15 cells HPF (0-5); Band 1 % (5-11); Burr Cells SLIGHT = 2-5 cells HPF (0-1); Lymphocytes 9 % (21-51); Monocytes 3 % (0-10); Myelocyte 1 % (0-0); Neutrophil 86 % (42-75); Nucleated RBC (Manual Ct) 18 % (0); Platelet Adequacy Comment Platelets Decreased; Polychromasia SLIGHT = 2-3 cells HPF (0-2); Schistocytes SLIGHT = 2-5 cells HPF (0-1)
[2024-03-18 06:19] LABS: Lactic Acid 13.97 mmol/L (0.5-2.2)
[2024-03-18 06:20] LABS: ALT (SGPT) 840 U/L (8-55); AST (SGOT) Greater than 4202 U/L (5-34); Albumin 2.9 g/dL (3.4-4.8); Alkaline Phosphatase 163 U/L (40-110); Anion Gap 28 mmol/L (10-20); BUN (Urea Nitrogen) 42 mg/dL (9.8-20.1); Bilirubin, Total 5.2 mg/dL (0.2-1.2); CK (CPK) 940 U/L (29-168); Calc. Creatinine Clearance 28 mL/min (70-130); Carbon Dioxide 19 mmol/L (23-31); Chloride 105 mmol/L (98-107); Estimated GFR 20; Globulin 2.1 g/dL (2.4-3.5); Glucose 158 mg/dL (83-110); Potassium 3.9 mmol/L (3.5-5.1); Sodium 148 mmol/L (136-145)
[2024-03-18 06:27] LABS: Prothrombin Time 58.5 sec (12.0-14.7)
[2024-03-18 06:28] LABS: PTT 85.4 sec (22.9-36.1)
[2024-03-18 06:45] LABS: INR-International Normal Ratio 6.6
[2024-03-18] MEDS: Phytonadione 10 MG in Sodium Chloride 0.9% 50 ML IVPB SCH (08:39)
[2024-03-18] MEDS ORDERED: Morphine 2 MG/ML VIAL SLOW IVP PRN (09:02)
[2024-03-18] MEDS: Racepinephrine 2.25% 0.5 ML NEB NEB SCH (09:17)
[2024-03-18] MEDS: Meropenem 1 GM in Sodium Chloride 0.9% 100 ML IVPB SCH (10:20)
[2024-03-18] MEDS: Furosemide 100 MG (10 mL) VIAL SLOW IVP SCH (10:21)
[2024-03-18] MEDS ORDERED: Meropenem 0.5 GM in Sodium Chloride 0.9% 100 ML IVPB SCH (14:00)
[2024-03-18 14:19] LABS: INR-International Normal Ratio 3.4; Prothrombin Time 34.4 sec (12.0-14.7)
[2024-03-18 14:20] LABS: PTT 60.5 sec (22.9-36.1)
[2024-03-18 14:33] LABS: Fibrinogen 41 mg/dL (253-463)
[2024-03-18] MEDS: Mineral Oil ENEMA PR SCH (14:57)
[2024-03-18] MEDS: Bumetanide 1 MG/4 ML VIAL IVP SCH (15:40)
[2024-03-18 16:42] LABS: Anion Gap 28 mmol/L (10-20); BUN (Urea Nitrogen) 47 mg/dL (9.8-20.1); Calc. Creatinine Clearance 30 mL/min (70-130); Calcium 7.3 mg/dL (7.8-10.44); Carbon Dioxide 22 mmol/L (23-31); Chloride 103 mmol/L (98-107); Estimated GFR 21; Glucose 152 mg/dL (83-110); Potassium 3.7 mmol/L (3.5-5.1); Sodium 149 mmol/L (136-145)
[2024-03-18] MEDS: Meropenem 500 MG in Sodium Chloride 0.9% 100 ML IVPB SCH (17:58)
[2024-03-19 05:26] LABS: Hematocrit 28.3 % (36.0-47.0); Hemoglobin 9.1 g/dL (12.0-16.0); Mean Corpuscular HGB CONC 32.2 g/dL (32.0-36.0); Mean Corpuscular Hemoglobin 31.5 pg (27.0-31.0); Mean Corpuscular Volume 97.9 fL (78.0-98.0); Platelet Count 49 10x3/uL (130-400); RBC Distribution Width 18.9 % (11.5-14.5); Red Blood Cell (RBC) Count 2.89 mill/uL (4.20-5.40)
[2024-03-19 05:37] LABS: ALT (SGPT) 772 U/L (8-55); AST (SGOT) 3107 U/L (5-34); Albumin 3.1 g/dL (3.4-4.8); Alkaline Phosphatase 149 U/L (40-110); Anion Gap 25 mmol/L (10-20); BUN (Urea Nitrogen) 51 mg/dL (9.8-20.1); CK (CPK) 1898 U/L (29-168); Calc. Creatinine Clearance 26 mL/min (70-130); Calcium 7.7 mg/dL (7.8-10.44); Carbon Dioxide 23 mmol/L (23-31); Chloride 104 mmol/L (98-107); Estimated GFR 18; Globulin 2.6 g/dL (2.4-3.5); Glucose 97 mg/dL (83-110); Potassium 3.8 mmol/L (3.5-5.1); Protein, Total 5.7 g/dL (5.8-8.1); Sodium 148 mmol/L (136-145)
[2024-03-19 06:24] LABS: Anisocytosis MODERATE=16-30 cells HPF (0-5); Band 17 % (5-11); Eosinophils 1 % (0-10); Large Platelets 10.2 % (0-5); Lymphocytes 14 % (21-51); Macrocytosis MODERATE=16-30 cells HPF (0-5); Monocytes 2 % (0-10); Myelocyte 1 % (0-0); Neutrophil 63 % (42-75); Nucleated RBC (Manual Ct) 52 % (0); Pappenheimer Bodies SLIGHT = 1-2 cells HPF (None Seen); Platelet Adequacy Comment Platelets Decreased; Polychromasia SLIGHT = 2-3 cells HPF (0-2); Schistocytes SLIGHT = 2-5 cells HPF (0-1); Smudge Cells 5.1 %
[2024-03-19] MEDS: Bisacodyl 10 MG SUPP PR PRN (09:45)
[2024-03-19 10:08] LABS: ALT (SGPT) 22 U/L (8-55); AST (SGOT) 73 U/L (5-34); Acetaminophen Less than 10 mcg/mL (Less than 10); Albumin 2.7 g/dL (3.4-4.8); Alcohol Less than 10.0 mg/dL (Less than 10); Alkaline Phosphatase 66 U/L (40-110); Anion Gap 17 mmol/L (10-20); BUN (Urea Nitrogen) 40 mg/dL (9.8-20.1); Bilirubin, Total 1.4 mg/dL (0.2-1.2); CK (CPK) 2031 U/L (29-168); Calc. Creatinine Clearance 17 mL/min (70-130); Calcium 8.4 mg/dL (7.8-10.44); Carbon Dioxide 18 mmol/L (23-31); Chloride 116 mmol/L (98-107); Estimated GFR 11; Globulin 2.9 g/dL (2.4-3.5); Glucose 107 mg/dL (83-110); Lipase 26 U/L (8-78); Potassium 4.3 mmol/L (3.5-5.1); Protein, Total 5.6 g/dL (5.8-8.1); Salicylate Less than 8.0 mg/dL (Less than 8.0); Sodium 147 mmol/L (136-145)
[2024-03-19 10:20] LABS: Troponin I 0.131 ng/mL (< 0.028)
[2024-03-19 10:48] LABS: Hemoglobin 11.2 g/dL (12.0-16.0); Red Blood Cell (RBC) Count 3.51 mill/uL (4.20-5.40); White Blood Cell (WBC) Count 9.19 10x3/uL (4.8-10.8)
[2024-03-19 10:49] LABS: Hematocrit 35.1 % (36.0-47.0); Mean Corpuscular HGB CONC 31.9 g/dL (32.0-36.0); Mean Corpuscular Hemoglobin 31.9 pg (27.0-31.0); Mean Platelet Volume 11.8 fL (7.4-10.4); Platelet Count 95 10x3/uL (130-400); RBC Distribution Width 15.8 % (11.5-14.5)
[2024-03-19 10:52] LABS: %Basophils 0.5 % (0.0-1.0); %Eosinophils 5.1 % (0.0-10.0); %Lymphocytes 24.4 % (21.0-51.0); %Monocytes 7.9 % (0.0-10.0); %Neutrophils 61.3 % (42.0-75.0)
[2024-03-19 10:56] LABS: #Basophils 0.05 10x3/uL (0.0-0.2); #Eosinophils 0.47 10x3/uL (0.0-0.7); #Monocytes 0.73 10x3/uL (0.11-0.59); #Neutrophils 5.63 10x3/uL (1.40-6.50); Macrocytosis SLIGHT = 6-15 cells (100X) (0-5/hpf)
[2024-03-19 10:57] LABS: Anisocytosis SLIGHT = 6-15 cells (100X) (0-5/hpf); Burr Cells MODERATE= 6-15 cells (100X) (0-1/hpf); Ovalocytes SLIGHT = 2-5 cells (100X) (0-1/hpf); Poikilocytosis SLIGHT = 6-15 cells (100X) (0-5/hpf); Schistocytes SLIGHT = 2-5 cells (100X) (0-1/hpf)
[2024-03-19 10:58] LABS: INR-International Normal Ratio 1.5; PTT 45.5 sec (22.9-36.1); Prothrombin Time 18.2 sec (12.0-14.7)
[2024-03-19 11:41] LABS: #Basophils 0.09 10x3/uL (0.0-0.2); #Eosinophils Less than 0.03 10x3/uL (0.0-0.7); %Basophils 0.7 % (0.0-1.0); %Eosinophils 0.1 % (0.0-10.0); %Lymphocytes 11.1 % (21.0-51.0); %Monocytes 6.8 % (0.0-10.0); %Neutrophils 72.3 % (42.0-75.0); Hematocrit 28.7 % (36.0-47.0); Hemoglobin 9.1 g/dL (12.0-16.0); Mean Corpuscular HGB CONC 31.7 g/dL (32.0-36.0); Mean Corpuscular Hemoglobin 30.8 pg (27.0-31.0); Mean Corpuscular Volume 97.3 fL (78.0-98.0); Platelet Count 51 10x3/uL (130-400); RBC Distribution Width 18.8 % (11.5-14.5); Red Blood Cell (RBC) Count 2.95 mill/uL (4.20-5.40)
[2024-03-19 11:54] LABS: ALT (SGPT) 771 U/L (8-55); AST (SGOT) 2838 U/L (5-34); Alkaline Phosphatase 137 U/L (40-110); Bilirubin, Direct 4.2 mg/dL (0.1-0.3); Bilirubin, Total 6.2 mg/dL (0.2-1.2); Protein, Total 5.4 g/dL (5.8-8.1)
[2024-03-19 12:22] LABS: Lactic Acid 8.29 mmol/L (0.5-2.2)
[2024-03-19 12:25] LABS: INR-International Normal Ratio 2.2; Prothrombin Time 24.9 sec (12.0-14.7)
[2024-03-19 12:27] LABS: Fibrinogen 165 mg/dL (253-463)
[2024-03-19 12:29] LABS: Platelet Count 55 10x3/uL (130-400)
[2024-03-19 12:37] LABS: Anisocytosis MARKED = >30 cells HPF (0-5); Band 4 % (5-11); Burr Cells SLIGHT = 2-5 cells HPF (0-1); Hypochromia SLIGHT = 6-15 cells HPF (0-5); Large Platelets 6.7 % (0-5); Lymphocytes 11 % (21-51); Monocytes 6 % (0-10); Neutrophil 80 % (42-75); Nucleated RBC (Manual Ct) 40 % (0); Platelet Adequacy Comment Platelets Decreased; Polychromasia SLIGHT = 2-3 cells HPF (0-2); Schistocytes SLIGHT = 2-5 cells HPF (0-1)
[2024-03-19 12:47] LABS: D-Dimer Test Greater than 20.00 mcg/mL (0.27-0.43)
[2024-03-19] MEDS: Fleet Saline Enema 133 ML BOT PR SCH (19:47)
[2024-03-19] MEDS: Bisacodyl 10 MG SUPP PR SCH (19:47)
[2024-03-20] MEDS: Levothyroxine Sodium 88 MCG TAB PO SCH (05:46)
[2024-03-20 06:22] LABS: Immunoglob - G (Total IgG) 1119 mg/dL (Not Available); Immunoglob - M (Total IgM) 65 mg/dL (33-293)
[2024-03-20 06:25] LABS: Hematocrit 27.9 % (36.0-47.0); Hemoglobin 8.9 g/dL (12.0-16.0); Mean Corpuscular HGB CONC 31.9 g/dL (32.0-36.0); Mean Corpuscular Hemoglobin 31.3 pg (27.0-31.0); Mean Corpuscular Volume 98.2 fL (78.0-98.0); Platelet Count 64 10x3/uL (130-400); RBC Distribution Width 18.6 % (11.5-14.5); Red Blood Cell (RBC) Count 2.84 mill/uL (4.20-5.40)
[2024-03-20 06:31] LABS: Phosphorus 4.4 mg/dL (2.3-4.7)
[2024-03-20 06:32] LABS: ALT (SGPT) 849 U/L (8-55); AST (SGOT) 2739 U/L (5-34); Albumin 2.9 g/dL (3.4-4.8); Alkaline Phosphatase 158 U/L (40-110); Anion Gap 16 mmol/L (10-20); BUN (Urea Nitrogen) 70 mg/dL (9.8-20.1); Bilirubin, Total 6.4 mg/dL (0.2-1.2); CK (CPK) 2296 U/L (29-168); Calc. Creatinine Clearance 25 mL/min (70-130); Calcium 7.5 mg/dL (7.8-10.44); Carbon Dioxide 32 mmol/L (23-31); Chloride 105 mmol/L (98-107); Estimated GFR 18; Globulin 2.4 g/dL (2.4-3.5); Glucose 152 mg/dL (83-110); Potassium 3.4 mmol/L (3.5-5.1); Protein, Total 5.3 g/dL (5.8-8.1); Sodium 150 mmol/L (136-145)
[2024-03-20 06:44] LABS: Hep A IgM AB NONREACTIVE (NonReactive); Hep A IgM S/CO 0.19 S/CO (0-0.79); Hep B Core IgM Index 0.13 S/CO (0-0.79); Hep B Surf Ag NONREACTIVE S/CO (NonReactive); Hep C IgG Ab NONREACTIVE S/CO (NonReactive); Hep C Index 0.11 S/CO (0-0.79); Hepatitis B Core IgM Abs NONREACTIVE S/CO (NonReactive)
[2024-03-20 06:56] LABS: Anisocytosis SLIGHT = 6-15 cells HPF (0-5); Band 10 % (5-11); Burr Cells SLIGHT = 2-5 cells HPF (0-1); Large Platelets 7.1 % (0-5); Lymphocytes 8 % (21-51); Monocytes 3 % (0-10); Myelocyte 2 % (0-0); Neutrophil 77 % (42-75); Nucleated RBC (Manual Ct) 66 % (0); Platelet Adequacy Comment Platelets Decreased; Poikilocytosis SLIGHT = 6-15 cells HPF (0-5); Polychromasia SLIGHT = 2-3 cells HPF (0-2); Schistocytes SLIGHT = 2-5 cells HPF (0-1); Smudge Cells 7.1 %
[2024-03-20 11:11] LABS: CK (CPK) 2325 U/L (29-168); Chloride 118 mmol/L (98-107); Sodium 145 mmol/L (136-145)
[2024-03-20 11:13] LABS: #Basophils 0.05 10x3/uL (0.0-0.2); #Eosinophils 0.62 10x3/uL (0.0-0.7); #Monocytes 0.58 10x3/uL (0.11-0.59); #Neutrophils 5.61 10x3/uL (1.40-6.50); %Basophils 0.6 % (0.0-1.0); %Eosinophils 7.1 % (0.0-10.0); %Lymphocytes 20.5 % (21.0-51.0); %Monocytes 6.7 % (0.0-10.0); %Neutrophils 64.6 % (42.0-75.0); Hematocrit 32.7 % (36.0-47.0); Hemoglobin 10.3 g/dL (12.0-16.0); Mean Corpuscular HGB CONC 31.5 g/dL (32.0-36.0); Mean Corpuscular Hemoglobin 32.1 pg (27.0-31.0); Mean Corpuscular Volume 101.9 fL (78.0-98.0); Mean Platelet Volume 12.1 fL (7.4-10.4); Platelet Count 83 10x3/uL (130-400); RBC Distribution Width 15.9 % (11.5-14.5); Red Blood Cell (RBC) Count 3.21 mill/uL (4.20-5.40); White Blood Cell (WBC) Count 8.68 10x3/uL (4.8-10.8)
[2024-03-20 11:13] LABS: Lactic Acid 2.25 mmol/L (0.5-2.2)
[2024-03-20 11:16] LABS: ALT (SGPT) 26 U/L (8-55); AST (SGOT) 83 U/L (5-34); Albumin 2.6 g/dL (3.4-4.8); Alkaline Phosphatase 64 U/L (40-110); Anion Gap 11 mmol/L (10-20); BUN (Urea Nitrogen) 40 mg/dL (9.8-20.1); Bilirubin, Total 1.8 mg/dL (0.2-1.2); Calc. Creatinine Clearance 19 mL/min (70-130); Calcium 7.8 mg/dL (7.8-10.44); Carbon Dioxide 20 mmol/L (23-31); Chloride 117 mmol/L (98-107); Estimated GFR 13; Globulin 2.7 g/dL (2.4-3.5); Glucose 101 mg/dL (83-110); Potassium 4.1 mmol/L (3.5-5.1); Protein, Total 5.3 g/dL (5.8-8.1); Sodium 144 mmol/L (136-145)
[2024-03-20 11:17] LABS: Lactic Acid 1.69 mmol/L (0.5-2.2)
[2024-03-20 14:21] LABS: ANA Symphony (Qualitative) Negative (Negative); ANA Symphony (Quantitative) 0.3 Ratio (< 0.7 Negative); EliA Vaculitis New Method **** NEW METHOD ****; Mitochondrial Ab 7.9 U/mL (<4 Negative); dsDNA IgG Antibody Less than 0.6 IU/mL (<10 Negative)
[2024-03-21] MEDS: hydrALAZINE 20 MG/ML VIAL SLOW IVP PRN (04:21)
[2024-03-21 04:59] LABS: Hematocrit 28.1 % (36.0-47.0); Hemoglobin 8.9 g/dL (12.0-16.0); Mean Corpuscular HGB CONC 31.7 g/dL (32.0-36.0); Mean Corpuscular Hemoglobin 31.6 pg (27.0-31.0); Mean Corpuscular Volume 99.6 fL (78.0-98.0); Platelet Count 56 10x3/uL (130-400); RBC Distribution Width 19.5 % (11.5-14.5); Red Blood Cell (RBC) Count 2.82 mill/uL (4.20-5.40)
[2024-03-21 05:01] LABS: ALT (SGPT) 791 U/L (8-55); AST (SGOT) 2034 U/L (5-34); Albumin 2.8 g/dL (3.4-4.8); Alkaline Phosphatase 155 U/L (40-110); Anion Gap 15 mmol/L (10-20); BUN (Urea Nitrogen) 69 mg/dL (9.8-20.1); Calc. Creatinine Clearance 29 mL/min (70-130); Calcium 7.6 mg/dL (7.8-10.44); Carbon Dioxide 40 mmol/L (23-31); Chloride 103 mmol/L (98-107); Estimated GFR 21; Globulin 2.5 g/dL (2.4-3.5); Glucose 178 mg/dL (83-110); Potassium 2.6 mmol/L (3.5-5.1); Protein, Total 5.3 g/dL (5.8-8.1); Sodium 155 mmol/L (136-145)
[2024-03-21 05:34] LABS: Anisocytosis MODERATE=16-30 cells HPF (0-5); Band 19 % (5-11); Basophilic Stippling SLIGHT = 1-2 cells HPF (None Seen); Burr Cells SLIGHT = 2-5 cells HPF (0-1); Elliptocytes SLIGHT = 2-5 cells HPF (0-1); Lymphocytes 8 % (21-51); Macrocytosis MODERATE=16-30 cells HPF (0-5); Metamyelocyte 2 % (0-0); Monocytes 4 % (0-10); Myelocyte 3 % (0-0); Neutrophil 64 % (42-75); Nucleated RBC (Manual Ct) 42 % (0); Ovalocytes SLIGHT = 2-5 cells HPF (0-1); Platelet Adequacy Comment Platelets Decreased; Poikilocytosis MODERATE=16-30 cells HPF (0-5); Polychromasia MODERATE = 3-4 cells HPF (0-2); Schistocytes SLIGHT = 2-5 cells HPF (0-1); Tear Drops SLIGHT = 2-5 cells HPF (0-1)
[2024-03-21] MEDS: Potassium Chloride 20 MEQ in Premix 1 BAG IVPB SCH (05:41)
[2024-03-22 06:19] LABS: ALT (SGPT) 529 U/L (8-55); AST (SGOT) 784 U/L (5-34); Albumin 2.7 g/dL (3.4-4.8); Alkaline Phosphatase 166 U/L (40-110); Anion Gap 17 mmol/L (10-20); BUN (Urea Nitrogen) 65 mg/dL (9.8-20.1); Calc. Creatinine Clearance 34 mL/min (70-130); Calcium 8.1 mg/dL (7.8-10.44); Carbon Dioxide 39 mmol/L (23-31); Chloride 106 mmol/L (98-107); Estimated GFR 26; Globulin 2.5 g/dL (2.4-3.5); Glucose 273 mg/dL (83-110); Magnesium 1.7 mg/dL (1.6-2.6); Phosphorus 2.1 mg/dL (2.3-4.7); Potassium 2.3 mmol/L (3.5-5.1); Protein, Total 5.2 g/dL (5.8-8.1); Sodium 160 mmol/L (136-145)
[2024-03-22] MEDS: Magnesium 2 GM/50 ML(in water) 2 GM in Premix 1 BAG IVPB SCH (07:01)
[2024-03-22] MEDS: Potassium Chloride 20 MEQ in Premix 1 BAG IVPB SCH (07:02)
[2024-03-22 08:26] VITALS: TEMP 97.6
[2024-03-22] MEDS: Potassium Chloride 40 MEQ in Dextrose 5% in Water 1,000 ML IV SCH (08:53)
[2024-03-22] MEDS ORDERED: Electrolyte Replacement Protocol 1 EACH FS SCH (10:30)
[2024-03-22] MEDS ORDERED: Electrolyte Replacement Protocol FS PRN (11:00)
[2024-03-22] MEDS: Rifaximin 200 MG TAB PO SCH (12:33)
[2024-03-22] MEDS: Rifaximin 550 MG TAB PO SCH ×2 (12:34→22:10)
[2024-03-22 15:58] LABS: Anion Gap 13 mmol/L (10-20); BUN (Urea Nitrogen) 65 mg/dL (9.8-20.1); Calc. Creatinine Clearance 38 mL/min (70-130); Calcium 7.7 mg/dL (7.8-10.44); Carbon Dioxide 39 mmol/L (23-31); Chloride 107 mmol/L (98-107); Estimated GFR 29; Glucose 315 mg/dL (83-110); Potassium 3.6 mmol/L (3.5-5.1); Sodium 155 mmol/L (136-145)
[2024-03-22] MEDS ORDERED: Rifaximin 200 MG TAB PO SCH (21:00)
[2024-03-23 14:20] VITALS: BMI 35.8
[2024-03-23 16:24] VITALS: BP 108/85
[2024-03-23] MEDS ORDERED: Rifaximin 200 MG TAB PO SCH (21:00)
== END 2024-03-23 15:35 | disposition hospice, home (50) | DRG 871 ==
LOC: ERS 17:54 → CCU 23:32 → EDSTATUS 03-15 22:52 → CCU 03-19 06:35 → IMCU/EMU 03-21 22:59
PROVIDERS: ADMIT Family Medicine; ATTEND Internal Medicine
PROC: 4A10X4Z Monitoring of Central Nervous Electrical Activity, External Approach (ICD-10-PCS; principal; 2024-03-14)
PROC: 3E04329 Introduction of Other Anti-infective into Central Vein, Percutaneous Approach (ICD-10-PCS; 2024-03-14)
PROC: 3E0234Z Introduction of Serum, Toxoid and Vaccine into Muscle, Percutaneous Approach (ICD-10-PCS; 2024-03-14)
PROC: 3E033XZ Introduction of Vasopressor into Peripheral Vein, Percutaneous Approach (ICD-10-PCS; 2024-03-14)
DX: A41.9 Sepsis, unspecified organism (principal); D65 Disseminated intravascular coagulation [defibrination syndrome]; R65.21 Severe sepsis with septic shock; J18.9 Pneumonia, unspecified organism; G93.41 Metabolic encephalopathy; K72.00 Acute and subacute hepatic failure without coma; E27.40 Unspecified adrenocortical insufficiency; M62.82 Rhabdomyolysis; N17.9 Acute kidney failure, unspecified; I48.21 Permanent atrial fibrillation; E87.20 Acidosis, unspecified; E87.0 Hyperosmolality and hypernatremia; Z66 Do not resuscitate; K56.41 Fecal impaction; I48.0 Paroxysmal atrial fibrillation; Y92.009 Unspecified place in unspecified non-institutional (private) residence as the place of occurrence of the external cause; E87.6 Hypokalemia; I25.10 Atherosclerotic heart disease of native coronary artery without angina pectoris; F03.90 Unspecified dementia, unspecified severity, without behavioral disturbance, psychotic disturbance, mood disturbance, and anxiety; E03.9 Hypothyroidism, unspecified; E78.5 Hyperlipidemia, unspecified; R74.01 Elevation of levels of liver transaminase levels; J84.10 Pulmonary fibrosis, unspecified; R79.89 Other specified abnormal findings of blood chemistry; I12.9 Hypertensive chronic kidney disease with stage 1 through stage 4 chronic kidney disease, or unspecified chronic kidney disease; N18.30 Chronic kidney disease, stage 3 unspecified; E83.51 Hypocalcemia; D63.1 Anemia in chronic kidney disease; R29.6 Repeated falls; Z95.2 Presence of prosthetic heart valve; Z88.0 Allergy status to penicillin; Z95.5 Presence of coronary angioplasty implant and graft; Z98.890 Other specified postprocedural states; Z79.890 Hormone replacement therapy; W19.XXXA Unspecified fall, initial encounter; Z23 Encounter for immunization
CPT/HCPCS: 36416; 36430; 36556; 51702; 70450; 71045; 71250; 72125; 74018; 74177; 76705; 80048; 80053; 80074; 80202; 80307; 82105; 82140; 82533; 82550; 82805; 83516; 83605; 83690; 83735; 83880; 84100; 84145; 84146; 84443; 84484; 85025; 85049; 85300; 85362; 85384; 85610; 85730; 86015; 86038; 86225; 86850; 86900; 86901; 87040; 87400; 87426; 93005; 93306; 95813; 96365; 96366; 96368; 96375; 96376; J0282; J0360; J0692; J1630; J1720; J1940; J2185; J2470; J3010; J3370; J3430; J3475; J3480; J3490; J7030; J7050; J7070; P9012; P9047; P9059